=== PATIENT | female | born 1980 ===

== ENCOUNTER 2020-09-03 10:32 | Emergency (ER) | payer SELFPAY ==
--- NOTE | 2020-09-03 11:56 | Event Note ---
ED Screening Note Date of service: 09/03/20 Time: 11:55 ED Screening Note: Patient sent here from her PCP for blood transfusion Hemoglobin of 5.6 noted on labs from 09/02/2020 Heavy vaginal bleeding This initial assessment/diagnostic orders/clinical plan/treatment(s) is/are subject to change based on patients health status, clinical progression and re- assessment by fellow clinical providers in the ED. Further treatment and workup at subsequent clinical providers discretion. Patient/guardian urged not to elope from the ED as their condition may be serious if not clinically assessed and managed. Initial orders include: Labs
[2020-09-03] MEDS ORDERED: SODIUM CHLORIDE 0.9% 1000 ML 1,000 ML IV ONE (12:21)
[2020-09-03] MEDS ORDERED: SODIUM CHLORIDE 0.9% 500 ML 500 ML IV ONE ×2 (12:27→13:42)
[2020-09-03 13:17] LABS: Basophils % (Auto) 0.5 % (0.0-1.8); Eosinophils # (Auto) 0.1 K/mm3 (0.0-0.4); Eosinophils % (Auto) 1.9 % (0.0-4.3); Lymphocytes # (Auto) 0.9 K/mm3 (1.2-5.4); Lymphocytes % (Auto) 22.8 % (13.4-35.0); Mean Corpuscular HGB Conc 28 % (30-34); Monocytes # (Auto) 0.3 K/mm3 (0.0-0.8); Monocytes % (Auto) 8.2 % (0.0-7.3); Platelet Count 315 K/mm3 (140-440); Red Blood Count 3.71 M/mm3 (3.65-5.03)
[2020-09-03 13:24] LABS: Mean Corpuscular Volume 52 fl (79-97)
[2020-09-03 13:25] LABS: Red Cell Distribution Width 20.6 % (13.2-15.2)
[2020-09-03 13:27] LABS: Hemoglobin 5.4 gm/dl (10.1-14.3); INR 1.03 (0.87-1.13)
[2020-09-03 13:28] LABS: Hematocrit 19.2 % (30.3-42.9); Partial Thromboplastin Time 28.6 Sec. (24.2-36.6)
--- NOTE | 2020-09-03 13:28 | Emergency Department Report ---
ED General Adult HPI - General Chief complaint: Medical Clearance Stated complaint: ANEMIA Time Seen by Provider: 09/03/20 11:53 Source: patient Mode of arrival: Ambulatory Limitations: No Limitations - History of Present Illness Initial comments: This is a 40-year-old female who states that her periods have been on time but very heavy. She does not report any recent vaginal bleeding. She has not seen a title i teacher since her 2 years ago. She states at that time she did receive a transfusion of blood. She states that she does not know if she has any problems on ultrasound. She was sent by her primary care provider today when she was found to have a hemoglobin of 5.6. Patient states that she feels generally weak and somewhat short of breath on exertion. She denies fever or chills. She denies any significant bleeding from her last menstrual cycle which was heavy. - Related Data Allergies Allergy/AdvReac Type Severity Reaction Status Date / Time No Known Allergies Allergy Verified 09/03/20 13:42 ED Review of Systems ROS: Stated complaint: ANEMIA Other details as noted in HPI ED Past Medical Hx - Past Medical History Previous Medical History?: No - Social History Smoking Status: Never Smoker Substance Use Type: None ED Physical Exam - General Limitations: No Limitations ED Course Vital Signs 09/03/20 11:51 Temperature 98.1 F Pulse Rate 78 Respiratory 18 Rate Blood Pressure 125/85 O2 Sat by Pulse 100 Oximetry - Reevaluation(s) Reevaluation #1: Patient will be transfused. Ultrasound is pending. Discussed with hospitalist. 09/03/20 13:41 ED Medical Decision Making - Lab Data Result diagrams: 09/03/20 12:31 09/03/20 12:31 Laboratory Results - last 24 hr 09/03/20 09/03/20 12:31 12:31 WBC 4.0 L RBC 3.71 Hgb 5.4 L* Hct 19.2 L* MCV 52 L MCH 15 L MCHC 28 L RDW 20.6 H Plt Count 315 Lymph % (Auto) 22.8 Clare % (Auto) 8.2 H Eos % (Auto) 1.9 Baso % (Auto) 0.5 Lymph # (Auto) 0.9 L Clare # (Auto) 0.3 Eos # (Auto) 0.1 Baso # (Auto) 0.0 Seg Neutrophils % 66.6 Seg Neutrophils # 2.6 PT 13.3 INR 1.03 APTT 28.6 Laboratory Results - last 24 hr 09/03/20 09/03/20 09/03/20 12:31 12:31 12:31 WBC 4.0 L RBC 3.71 Hgb 5.4 L* Hct 19.2 L* MCV 52 L MCH 15 L MCHC 28 L RDW 20.6 H Plt Count 315 Lymph % (Auto) 22.8 Clare % (Auto) 8.2 H Eos % (Auto) 1.9 Baso % (Auto) 0.5 Lymph # (Auto) 0.9 L Clare # (Auto) 0.3 Eos # (Auto) 0.1 Baso # (Auto) 0.0 Seg Neutrophils % 66.6 Seg Neutrophils # 2.6 PT 13.3 INR 1.03 APTT 28.6 Sodium Potassium Chloride Carbon Dioxide Anion Gap BUN Glucose Calcium Total Bilirubin AST ALT Alkaline Phosphatase Total Protein Albumin Albumin/Globulin Ratio HCG, Qual Negative 09/03/20 12:31 WBC RBC Hgb Hct MCV MCH MCHC RDW Plt Count Lymph % (Auto) Clare % (Auto) Eos % (Auto) Baso % (Auto) Lymph # (Auto) Clare # (Auto) Eos # (Auto) Baso # (Auto) Seg Neutrophils % Seg Neutrophils # PT INR APTT Sodium 138 Potassium 4.4 Chloride 105.2 Carbon Dioxide 26 Anion Gap 11 BUN 8 Glucose 85 Calcium 8.5 Total Bilirubin 0.30 AST 16 ALT 10 Alkaline Phosphatase 73 Total Protein 8.1 Albumin 4.4 Albumin/Globulin Ratio 1.2 HCG, Qual Critical care attestation.: If time is entered above; I have spent that time in minutes in the direct care of this critically ill patient, excluding procedure time. ED Disposition Clinical Impression: Symptomatic anemia, Dysfunctional uterine bleeding Disposition: OP ADMIT IP TO THIS HOSP Is pt being admited?: Yes Does the pt Need Aspirin: No Condition: Stable Referrals: PRIMARY CARE, [Primary Care Provider] - 3-5 Days Time of Disposition: 13:42
[2020-09-03 13:35] LABS: Alanine Aminotransferase 10 units/L (7-56); Albumin 4.4 g/dL (3.9-5); Blood Urea Nitrogen 8 mg/dL (7-17); Calcium 8.5 mg/dL (8.4-10.2); Hemolysis Index 0
[2020-09-03 13:45] LABS: BUN/Creatinine Ratio 16; Bilirubin,Direct < 0.2 mg/dL (0-0.2)
--- NOTE | 2020-09-03 13:54 | Event Note ---
Date: 09/03/20 40-year-old female presents to ED for evaluation. Patient states that she has experienced generalized weakness, shortness of breath, as well as multiple episodes of vaginal bleeding that coincide with her menstrual cycle. Patient acknowledges heavy menstrual cycles over the past 2 years. Patient seen and evaluated in the emergency department. Lab and imaging studies reviewed. Patient found to have clinical symptoms consistent with menorrhagia complicated by chronic anemia. Patient treated with packed red blood cell transfusion and iron replacement therapy. Patient instructed to follow-up with gynecology service as outpatient for further care and evaluation and possible initiation on oral contraception. Patient does not meet admission criteria at this time. Patient discharged home. ED Physical Exam - General Limitations: No Limitations General appearance: alert, in no apparent distress - Head Head exam: Present: atraumatic, normocephalic - Eye Eye exam: Present: normal appearance - ENT ENT exam: Present: mucous membranes moist - Neck Neck exam: Present: normal inspection - Respiratory Respiratory exam: Present: normal lung sounds bilaterally. Absent: respiratory distress - Cardiovascular Cardiovascular Exam: Present: regular rate, normal rhythm, tachycardia. Absent: systolic murmur, diastolic murmur, rubs, gallop - GI/Abdominal GI/Abdominal exam: Present: soft, normal bowel sounds - Rectal Rectal exam: Present: deferred - Extremities Exam Extremities exam: Present: normal inspection - Back Exam Back exam: Present: normal inspection - Neurological Exam Neurological exam: Present: alert, oriented X3 - Psychiatric Psychiatric exam: Present: normal affect, normal mood - Skin Skin exam: Present: warm, dry, intact, normal color. Absent: rash
--- NOTE | 2020-09-03 16:44 | Ultrasound Report ---
Pelvic Ultrasound HISTORY: Dysfunctional uterine bleeding. TECHNIQUE: Grayscale and color imaging performed. COMPARISON: None FINDINGS: Transabdominal and endovaginal imaging was performed. Uterus measures 11.8 x 4.8 x 9.6 cm. There appear to be 2 separate endometrial canals which may refle ct an underlying mullerian duct anomaly. Each endometrial canal is approximately 1.7 cm. Nothing acut e identified. Both ovaries are unremarkable with small follicles. Minimal simple pelvic free fluid is present. Incidentally in the bladder, there is a tubular hypoechoic structure which which indents and protrude s into the urinary bladder lumen. IMPRESSION: 1. 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 Consider follow-up MRI pelvis with contrast for further evaluation. 2. Incidental bladder finding as above could be seen with a ureterocele. This could also be better ev aluated with pelvic MRI. 3. Otherwise nothing acute. Signer Name: Jose Reece MD Signed: 09/03/2020 4:39 PM Workstation Name: [id number]
[2020-09-03] MEDS: FERROUS SULFATE 325 MG TAB PO SCH (17:37)
[2020-09-03] MEDS ORDERED: SODIUM CHLORIDE 0.9% 500 ML 500 ML ONE (19:11)
[2020-09-04 00:10] VITALS: BP 112/77
[2020-09-04] MEDS: FERROUS SULFATE 325 MG TAB PO SCH (00:12)
== END 2020-09-03 23:55 | disposition admitted as inpatient to this hospital (09) ==
LOC: ED 10:32
DX: D64.9 Anemia, unspecified (principal); N93.8 Other specified abnormal uterine and vaginal bleeding
CPT/HCPCS: 36415; 36430; 76830; 76856; 80048; 80076; 84703; 85025; 85610; 85730; 86850; 86900; 86901; 86920; 96360; 96361; 99284; J7030; J7040; P9016

== ENCOUNTER 2021-01-18 08:22 | Emergency (ER) | payer SELFPAY ==
--- NOTE | 2021-01-18 09:55 | Event Note ---
ED Screening Note Date of service: 01/18/21 Time: 09:46 ED Screening Note: This initial assessment/diagnostic orders/clinical plan/treatment(s) is/are subject to change based on patients health status, clinical progression and re- assessment by fellow clinical providers in the ED. Further treatment and workup at subsequent clinical providers discretion. Patient/guardian urged not to elope from the ED as their condition may be serious if not clinically assessed and managed. Initial orders include: 40-year-old female with a past medical history of heavy menstrual bleeding. She states that she has been having a. Which started 2 weeks ago. She was seen by her doctor 2 days ago and pelvic ultrasound was done [facility] [place]. She states she has not received the results as yet and today she is feeling tired fatigued with some dizziness. She denies any chest pain or shortness of breath. Patient states she only has history of anemia and has no other medical problems she takes a multivitamin and iron tablet daily. feather trimmer ID [id number] was used for this evaluation
[2021-01-18 10:41] LABS: Hematocrit 21.2 % (30.3-42.9); Hemoglobin 6.7 gm/dl (10.1-14.3); Mean Corpuscular HGB Conc 32 % (30-34); Mean Corpuscular Volume 72 fl (79-97); Platelet Count 367 K/mm3 (140-440); Red Blood Count 2.96 M/mm3 (3.65-5.03); Red Cell Distribution Width 15.1 % (13.2-15.2)
[2021-01-18 10:58] LABS: Blood Urea Nitrogen 8 mg/dL (7-17); Calcium 8.4 mg/dL (8.4-10.2); Hemolysis Index 3
[2021-01-18 10:59] LABS: BUN/Creatinine Ratio 20
--- NOTE | 2021-01-18 14:14 | Emergency Department Report ---
ED Dizziness HPI - General Chief Complaint: Dizziness Stated Complaint: DIZZINESS Time Seen by Provider: 01/18/21 13:44 Source: patient Mode of arrival: Ambulatory Limitations: No Limitations - History of Present Illness Initial Comments: Chief complaint: I am dizzy. And bleeding. HPI: This is a 40-year-old female with history of anemia who presents with lightheadedness and heavy vaginal bleeding for 2 weeks. PCP 2 days ago diagnosed patient with menometrorrhagia due to Depo-Provera injections. She last received Depo-Provera injection on months ago. Her gynecological follow-up appointment has been made for March. She feels that appointment is too far away. She wants to know her hemoglobin count. She has been compliant with daily iron therapy. She denies any pain. She denies syncope. Denies chest pain. Denies palpitations. Lightheadedness is mild. She currently has no bleeding. In August patient received a transfusion of packed red blood cells. Hemoglobin was 5.4 prior to transfusion in August History obtained using [employer] line Kennel Attendant. Complaint: lightheadedness -: Gradual (2 weeks) Description: lightheadedness History of Same: Yes Severity: mild Improves With: rest Worsens With: position Associated Symptoms: denies other symptoms - Related Data Previous Rx's Medication Instructions Recorded Last Taken Type Ferrous Sulfate [Iron 325 MG] 325 mg PO BID #60 tablet 09/03/20 Unknown Rx Multivitamin Tab [Multiple Vitamin 1 each PO QDAY #30 tablet 09/03/20 Unknown Rx TAB (Theragran)] Sennosides/Docusate Sodium [Cvs 1 each PO BID #60 tablet 09/03/20 Unknown Rx Senna Plus Tablet] medroxyPROGESTERone ACETATE 10 mg PO DAILY 10 Days #10 tablet 01/18/21 Unknown Rx [Provera] Allergies Allergy/AdvReac Type Severity Reaction Status Date / Time No Known Allergies Allergy Verified 09/03/20 13:42 ED Review of Systems ROS: Stated complaint: DIZZINESS Other details as noted in HPI Comment: All other systems reviewed and negative Constitutional: denies: fever, malaise Respiratory: denies: cough, shortness of breath Gastrointestinal: denies: abdominal pain, nausea, vomiting Neurological: denies: headache, weakness ED Past Medical Hx - Past Medical History Previous Medical History?: Yes Additional medical history: Anemia - Surgical History Past Surgical History?: Yes Additional Surgical History: x 3 - Social History Smoking Status: Never Smoker Substance Use Type: None - Medications Home Medications: Home Medications Medication Instructions Recorded Confirmed Last Taken Type Ferrous Sulfate [Iron 325 MG] 325 mg PO BID #60 tablet 09/03/20 Unknown Rx Multivitamin Tab [Multiple Vitamin 1 each PO QDAY #30 tablet 09/03/20 Unknown Rx TAB (Theragran)] Sennosides/Docusate Sodium [Cvs 1 each PO BID #60 tablet 09/03/20 Unknown Rx Senna Plus Tablet] medroxyPROGESTERone ACETATE 10 mg PO DAILY 10 Days #10 tablet 01/18/21 Unknown Rx [Provera] ED Physical Exam - General Limitations: No Limitations General appearance: alert, in no apparent distress - Head Head exam: Present: atraumatic, normocephalic - Eye Eye exam: Present: normal appearance - ENT ENT exam: Present: mucous membranes moist - Neck Neck exam: Present: normal inspection, full ROM - Respiratory Respiratory exam: Present: normal lung sounds bilaterally. Absent: respiratory distress, wheezes, rales, rhonchi - Cardiovascular Cardiovascular Exam: Present: regular rate, normal rhythm, normal heart sounds. Absent: systolic murmur, diastolic murmur, rubs, gallop - GI/Abdominal GI/Abdominal exam: Present: soft, normal bowel sounds. Absent: distended, tenderness, guarding, rebound - Extremities Exam Extremities exam: Present: normal inspection - Neurological Exam Neurological exam: Present: alert, oriented X3 - Psychiatric Psychiatric exam: Present: normal affect, normal mood - Skin Skin exam: Present: warm, dry, intact, normal color. Absent: rash ED Course Vital Signs 01/18/21 08:42 Temperature 98.8 F Pulse Rate 82 Respiratory 18 Rate Blood Pressure 134/82 O2 Sat by Pulse 98 Oximetry ED Medical Decision Making - Lab Data Result diagrams: 01/18/21 10:10 01/18/21 10:10 - Medical Decision Making Microcytic anemia. Patient appears well. She is ambulatory without difficulty. She has mild symptoms. She does not require transfusion at this time. Hemoglobin improved from 5.4-6.7 today. I encouraged continuing iron therapy. I have prescribed Provera 10 mg tablets to use only if she develops severe heavy vaginal bleeding in the future. I used [employer] language line lining stamper to provide comprehensive verbal education and follow-up instructions.. Critical care attestation.: If time is entered above; I have spent that time in minutes in the direct care of this critically ill patient, excluding procedure time. ED Disposition Clinical Impression: Menometrorrhagia, Iron deficiency anemia Disposition: TO HOME OR SELFCARE Is pt being admited?: No Does the pt Need Aspirin: No Condition: Stable Instructions: Metrorrhagia, [id number], Preventing Iron Deficiency Anemia, Adult Prescriptions: medroxyPROGESTERone ACETATE [Provera] 10 mg PO DAILY 10 Days #10 tablet Referrals: RENUKA VILLA MD [Staff Physician] - as needed Print Language: LAO
[2021-01-18 15:38] VITALS: BP 130/68
== END 2021-01-18 15:38 | disposition home or self-care (01) ==
LOC: ED 08:22
DX: N92.1 Excessive and frequent menstruation with irregular cycle (principal); D50.9 Iron deficiency anemia, unspecified; Z79.899 Other long term (current) drug therapy; Z98.890 Other specified postprocedural states
CPT/HCPCS: 36415; 80048; 84703; 85027